=== PATIENT | male | born 1990 | race Caucasian/White ===

== ENCOUNTER 2018-06-21 02:11 | Emergency (ER) | payer OTHER ==
[~2018-06-21] VITALS: Ht 185.4 cm; Wt 79.4 kg
[2018-06-21 02:16] VITALS: BP 130/58
[2018-06-21] MEDS ORDERED: AMOXICILLIN 50500 MG PO (02:25)
[2018-06-21] MEDS ORDERED: ULTRAM 50MG TAB50 MG PO (02:25)
== END 2018-06-21 02:33 | disposition home or self-care (01) ==
LOC: EDBD 02:11 → M.ERS 02:11
DX: K02.9 Dental caries, unspecified (principal)

== ENCOUNTER 2018-07-31 18:16 | Emergency (ER) | payer OTHER ==
[~2018-07-31] VITALS: Ht 185.4 cm; Wt 79.4 kg
[~2018-07-31 18:16] MED LIST: AMOXICILLIN 50500 MG PO; ULTRAM 50MG TAB50 MG PO
[2018-07-31] MEDS ORDERED: ROBAXIN500 MG PO (19:31)
[2018-07-31 19:48] VITALS: BP 118/78
== END 2018-07-31 19:49 | disposition home or self-care (01) ==
LOC: M.ERS 18:16
DX: S46.812A Strain of other muscles, fascia and tendons at shoulder and upper arm level, left arm, initial encounter (principal); X58.XXXA Exposure to other specified factors, initial encounter; Y93.89 Activity, other specified; Y92.89 Other specified places as the place of occurrence of the external cause; Y99.8 Other external cause status; F17.210 Nicotine dependence, cigarettes, uncomplicated

== ENCOUNTER 2019-06-28 15:02 | Emergency (ER) | payer OTHER ==
[~2019-06-28] VITALS: Ht 185.4 cm; Wt 83.9 kg
[~2019-06-28 15:02] MED LIST changes: +ROBAXIN500 MG PO
[2019-06-28] MEDS ORDERED: AMOXICILLIN 50500 MG PO (15:24)
[2019-06-28 16:03] VITALS: BP 130/75
--- NOTE | 2019-06-29 14:52 | EKG ---
[place] [address] ELECTROCARDIOGRAM REPORT Name: MELISSATAE BREWER [place] Room: [facility]#: [id number] Admission: 06/28/19 Attend Phys: Discharge: 06/28/19 Date of : 89 Report #: [id number] THIS REPORT FOR: //name// [facility] ED Test Date: 2019-06-28 Test Time: 15:28:45 Pat Name: TAE MCKEON Department: Room: Gender: M Automatic Hemmer: PEGGY : 1990 Requested By: Michael Galindo Order Number: [id number] MD: Robel Chairez Measurements Intervals [place] Rate: 62 P: 90 [place]: 157 QRS: 62 QRSD: 87 T: 64 QT: 377 QTc: 383 Interpretive Statements Sinus rhythm Type I Brugada pattern with ST segment elevation noted in V2. Clinical correlation recommended. No previous ECG available for comparison Electronically Signed On 06-29-2019 14:52:07 CDT by Robel Chairez [email or web address] <ELECTRONICALLY SIGNED> By: Robel Chairez MD, [facility] 06/29/19 1452 [id number] 152 Robel Chairez MD, FACC /EPI
== END 2019-06-28 16:04 | disposition home or self-care (01) ==
LOC: M.ERS 15:02
DX: K02.9 Dental caries, unspecified (principal)

== ENCOUNTER → 2020-12-22 | Emergency (ER) | payer OTHER ==
[~2020-12-22] VITALS: Ht 185.4 cm; Wt 95.3 kg
[~2020-12-22] MED LIST changes: +AMOXIL 875 MG875 M1 PO; +APAP W/CODEINE1 TA2 PO; +LIDOCAINE VISC100 ML SWISH&SPIT
[2020-12-22 12:11] VITALS: BP 131/79
== END ==
LOC: M.ERS 11:46
DX: K02.9 Dental caries, unspecified (principal)

== ENCOUNTER 2021-05-11 18:11 | Emergency (ER) | payer OTHER ==
[~2021-05-11] VITALS: Ht 185.4 cm; Wt 95.3 kg
[2021-05-11 20:39] VITALS: BP 108/70
== END 2021-05-11 20:40 | disposition home or self-care (01) ==
LOC: M.ERS 18:11
DX: U07.1 COVID-19 (principal)